=== PATIENT | female | born 1960 | race Caucasian/White ===

== ENCOUNTER 2019-01-31 20:22 | Inpatient (IN) | payer OTHER, BC ==
[~2019-01-31] VITALS: Ht 152.4 cm; Wt 73.0 kg
--- NOTE | ~2019-01-31 | EMS ---
[address] [address] EMS Patient Care Report Name: MARIA GUADALUPE HERNADEZ Room #: 237-P ADM IN M.R.#: [id number] Admission: 01/31/19 Attend Phys: Nav Thomas Discharge: Date of : 62 Report #: [id number] THIS REPORT FOR: //name// Report Transmitted: 02/01/2019 01:24 EMS Care Summary [facility] MED-ACT Incident [id number] @ 01/31/2019 19:53 Incident Location [address] [place] [address] Patient MARIA GUADALUPE A MARICARMEN Female, 58 Years 1960 Patient Address [address] [place] [address] Patient History Chronic Obstructive Pulmonary Disease (COPD),Smoking,Emphysema, Patient Allergies No known allergies, Chief Complaint Respiratory Distress/Exacerbation of COPD Disposition Transported No Lights/[place] Dispatch Reason Breathing Problem Transported To [facility] Narrative [id number] was dispatched to the above address for a C1 difficulty breathing involving a 58 y/o female. EMS/LFD personnel arrived through the residence front door and met by the patient's . The patient was found sitting in her walker in the living room awake and alert but in obvious distress. She presented with an extremely sluggish demeanor, she was sitting in the tripod position, and she was only able to speak in 2-[address] [address] EMS Patient Care Report Name: MARIA GUDAALUPE HERNADEZ Room #: 237-P [facility] IN [facility]#: [id number] Admission: 01/31/19 Attend Phys: Nav Thomas Discharge: Date of : 62 Report #: [id number] The patient's reported that he returned home about 45 minutes prior to EMS arrival and found his sitting in the living room in her current state. He also reported that his was just recently released from another hospital for exacerbation of her COPD and emphysema and has been seen multiple times for breathing difficulties in the past couple years. The patient was initially able to respond appropriately to questions with head nods/shakes and could answer in 2-3 word phrases. Her also reported that she had received a nebulizer treatment about an hour ago with little to no effect. The patient's lung sounds were assessed and found her lung sounds to be extremely diminished, tight, and wheezy. The patient's basic vitals were assessed and the patient was given a duo-nebulizer treatment. The patient was quickly moved from her walker to the ambulance cot, secured, and moved to the ambulance for further evaluation, care, and transport. During transport, the patient's basic vitals were monitored, respiratory effort was closely monitored, she continued her breathing and oxygen treatment, and she was given comfort care. Upon arrival to [facility], the patient had become obtunded, was only able to follow simple commands, and did respond verbally to questions or statements. The patient was given a second duo-nebulizer treatment and the patient was transferred into the ED. Patient care was transferred to hospital staff in room 9. Initial Vitals @20:14P: 112,R: 45,BP: 121/82,Pain: 0/10,GCS: 12,SpO2: 91,Revised Trauma: 10,OR Suspected: false @19:59P: 112,R: 50,BP: 88/73,Pain: 0/10,GCS: 15,SpO2: 79,Revised Trauma: 10,OR Suspected: false Assessments @20:00MENTAL:Other,Person Oriented,Event Oriented,SKIN:Mottled,Cold,Pale,HEENT:Head/Face: No Abnormalities,Eyes: No Abnormalities,Neck/Airway: No Abnormalities,LUNG SOUNDS:General: No Abnormalities,ABDOMEN:General: No Abnormalities,PELVIS//GI:EXTREMITIES:PULSE:NEURO: Impression Chronic Obstructive Pulmonary Disease (COPD) Procedures @20:00ALS AssessmentResponse: UnchangedSucceeded@20:05Albuterol - 2.5 Milligrams (mg) - NebulizedResponse: Unchanged@20:05Ipratropium - 0.5 Milligrams (mg) - NebulizedResponse: Unchanged@20:02Oxygen FlowRate: 4 Device: Nasal Cannula (NC) Response: UnchangedSucceeded@20:17Albuterol - 2.5 Milligrams (mg) - NebulizedResponse: Unchanged@20:17Ipratropium - 0.5 Milligrams (mg) - NebulizedResponse: Unchanged [address] [address] EMS Patient Care Report Name: MARIA GUADALUPE HERNADEZ Room #: 237-P [facility] IN .#: [id number] Admission: 01/31/19 Attend Phys: Nav Thomas Discharge: Date of : 62 Report #: [id number] Timeline 19:53,Call Received 19:53,Psap Call 19:53,Dispatched 19:55,En Route 19:57,On Scene 19:59,At Patient 19:59,BP: 88/73 M,PULSE: 112,RR: 50 R,SPO2: 79 Ox,ETCO2: ,BG: ,PAIN: 0,GCS: 15, 20:00,ALS Assessment,Response: UnchangedSucceeded, 20:02,Oxygen FlowRate: 4 Device: Nasal Cannula (NC) Response: UnchangedSucceeded, 20:05,Albuterol - 2.5 Milligrams (mg) - Nebulized,Response: Unchanged 20:05,Ipratropium - 0.5 Milligrams (mg) - Nebulized,Response: Unchanged 20:13,Depart Scene 20:14,BP: 121/82 M,PULSE: 112,RR: 45 R,SPO2: 91 Ox,ETCO2: ,BG: ,PAIN: 0,GCS: 12, 20:17,Albuterol - 2.5 Milligrams (mg) - Nebulized,Response: Unchanged 20:17,Ipratropium - 0.5 Milligrams (mg) - Nebulized,Response: Unchanged 20:19,At Destination 20:40,Call Closed Disclaimer v1.1 Copyright 2019 [employer] This EMS Care Summary contains data elements from the applicable legal record (which may be displayed differently). It is designed to provide pertinent information for the following purposes: continuity of care, clinical quality, and state data reporting. The complete legal record is available to ED staff and administrators of the receiving hospital in [employer]'s Patient Tracker. All data is provided "as is."
[~2019-01-31 20:22] MED LIST: ALBUTEROL INH IH; CALCIUM 600 +1 EAC1 PO; CYMBALTA60 MG PO; FISH OIL 1,0001 EAC5 PO; INDERAL LA60 MG PO; LEVOTHYROXINE0.2 M1 PO; MULTIVITAMINS PO; PREVACID 30MG C30 M1 PO; ROXICODONE30 M1 PO; SANCTURA; TUSSIN COU10 MG/5 ML PO; VESICARE10 M1 PO; XANAX XR2 MG PO
[2019-01-31 20:53] LABS: HCO3 20.9 mmol/L (22.0-26.0); PCO2 62.4 mmHg (35.0-45.0); PO2 307.9 mmHg (80.0-100.0); pH 7.143 (7.360-7.450); sO2 99.5 % (92.0-98.0)
[2019-01-31 21:08] LABS: ABSOLUTE NEUTROPHILS 5.8 thou/uL (1.4-8.2); BASOPHILS 0.5 % (0.0-2.0); EOSINOPHILS 2.6 % (0.0-3.0); HEMATOCRIT 41.3 % (37.0-47.0); HEMOGLOBIN 13.6 gm/dL (12.0-15.0); LYMPHOCYTES 33.4 % (24.0-44.0); MCH 32.2 pg (26.0-34.0); MCHC 32.9 g/dL (28.0-37.0); MCV 97.8 fL (80.0-100.0); MONOCYTES 7.2 % (1.0-8.0); PLATELET COUNT 353 thou/uL (150-400); POLYS 56.3 % (36.0-66.0); RBC 4.22 mil/uL (4.20-5.00); RDW 13.5 % (10.5-14.5); WBC 10.3 thou/uL (4.0-11.0)
[2019-01-31 21:10] LABS: POC CA IONIZED 4.6 mg/dL (4.5-5.3); POC CREATININE 1.3 mg/dL (0.6-1.3); POC POTASSIUM 5.9 mmol/L (3.5-5.1)
--- NOTE | 2019-01-31 21:11 | NUR ---
SPOUSE UPDATED ON CARE THUS FAR AND TREATMENT PLAN
[2019-01-31] MEDS ORDERED: OXYCONTIN PO (21:22)
[2019-01-31 21:25] LABS: ALBUMIN 3.2 g/dL (3.4-5.0); ANION GAP 13 mmol/L (7-16); BUN 10 mg/dL (7-18); CALCIUM 9.6 mg/dL (8.5-10.1); CHLORIDE 91 mmol/L (98-107); CO2 25 mmol/L (21-32); CREATININE 1.5 mg/dL (0.6-1.0); GLUCOSE 261 mg/dL (74-106); LIPASE 167 U/L (73-393); SGOT 64 U/L (15-37); SGPT 26 U/L (30-65); SODIUM 129 mmol/L (136-145); TOTAL BILIRUBIN 0.4 mg/dL (<0.1-1.0); TOTAL PROTEIN 7.1 g/dL (6.4-8.2); TROPONIN-I <0.06 ng/mL (<0.06)
[2019-01-31] MEDS ORDERED: PROAIR HFA8.5 GM INH (21:25)
[2019-01-31] MEDS ORDERED: DIPENTUM 250MG250 MG PO (21:25)
[2019-01-31] MEDS ORDERED: IPRAT-ALBUT 0.5-3 ML (21:25)
[2019-01-31] MEDS ORDERED: ZANTAC 150MG T150 M1 PO (21:26)
[2019-01-31 21:27] LABS: POTASSIUM 6.1 mmol/L (3.5-5.1)
[2019-01-31] MEDS ORDERED: TRAMADOL 50 MG50 MG PO (21:27)
[2019-01-31] MEDS ORDERED: TRAZODONE HCL100 MG PO (21:27)
[2019-01-31] MEDS ORDERED: BUPROPION XL300 MG PO (21:32)
[2019-01-31] MEDS ORDERED: OLANZAPINE ODT5 MG PO (21:33)
[2019-01-31] MEDS ORDERED: ASA81BEC PO (22:22)
[2019-01-31] MEDS ORDERED: MELATONIN5 MG PO (22:23)
[2019-01-31 22:34] LABS: BE(vivo) 1.9 mmol/L (-2 to +3); HCO3 32.1 mmol/L (22.0-26.0); PCO2 79.6 mmHg (35.0-45.0); PO2 151.3 mmHg (80.0-100.0); pH 7.224 (7.360-7.450); sO2 98.5 % (92.0-98.0)
[2019-01-31 23:20] VITALS: BP 130/76
[2019-01-31 23:53] VITALS: BP 99/65
[2019-02-01] VITALS (60 sets, daily range): BP systolic 69–138; BP diastolic 46–95
[2019-02-01 00:24] LABS: URINE BILIRUBIN NEGATIVE (Negative); URINE BLOOD NEGATIVE (Negative); URINE CLARITY CLEAR; URINE COLOR YELLOW; URINE GLUCOSE-RANDOM* NEGATIVE (Negative); URINE KETONES NEGATIVE (Negative); URINE LEUKOCYTES NEGATIVE (Negative); URINE NITRITE NEGATIVE (Negative); URINE PROTEIN (DIPSTICK) NEGATIVE (Negative); URINE SPECIFIC GRAVITY <= 1.005 (1.005-1.035); URINE UROBILINOGEN 0.2 E.U./dl (0.2-1.0)
--- NOTE | 2019-02-01 02:02 | NUR ---
PT ARRIVED TO ICU AT 2337 ACCOMPANIED BY ED RN AND RT. PT INTUBATED AND SEDATED ON PROPOFOL PER VENT MANAGMENT. PT SR ON THE MONITOR. BP SOFT ON ADMISSION. PT HAD EPISODE OF HYPOTENSION IN ICU. HYPOTENSION IMPROVED WITH TITRATION OF SEDATION. PT RESTRAINED DUE TO IMPULSIVENESS AND PREVENTION OF REMOVAL OF MEDICAL DEVICES. DR DELATORRE CONTACTED AND UPDATED ON PT STATUS. UPDATED AT BEDSIDE ON PT STATUS, QUESTIONS ANSWERED. WILL CONTINUE TO MONITOR PT.
[2019-02-01 05:36] LABS: HCO3 30.7 mmol/L (22.0-26.0); PCO2 54.7 mmHg (35.0-45.0); pH 7.367 (7.360-7.450); sO2 94.6 % (92.0-98.0)
[2019-02-01 06:49] LABS: CREATININE 1.3 mg/dL (0.6-1.0); POTASSIUM 3.4 mmol/L (3.5-5.1)
[2019-02-01 08:26] LABS: HEMATOCRIT 43.9 % (37.0-47.0); HEMOGLOBIN 14.7 gm/dL (12.0-15.0); MCHC 33.5 g/dL (28.0-37.0); MCV 95.4 fL (80.0-100.0); RBC 4.6 mil/uL (4.20-5.00); RDW 13.3 % (10.5-14.5); WBC 11.6 thou/uL (4.0-11.0)
--- NOTE | 2019-02-01 10:20 | EKG ---
[place] [address] [facility] [place] [address] ELECTROCARDIOGRAM REPORT Name: MARIA GUADALUPE HERNADEZ Room #: 237-P ADM IN M.R.#: [id number] Admission: 01/31/19 Attend Phys: Nav Thomas Discharge: Date of : 62 Report #: [id number] THIS REPORT FOR: //name// [facility] ED Test Date: 2019-01-31 Test Time: 20:30:03 Pat Name: MARIA GUADALUPE HERNADEZ Department: Room: 237 Gender: F Master [employer]: ANUJ : 1960 Requested By: Ghanshyam Garrett Order Number: [id number] MD: Cj Jones Measurements Intervals [place] Rate: 124 P: 0 DC: 61 QRS: -24 QRSD: 132 T: 82 QT: 370 QTc: 532 Interpretive Statements Sinus tachycardia Left bundle branch block Compared to ECG 10/28/2010 07:08:26 Left bundle-branch block now present Sinus rhythm no longer present Electronically Signed On 02-01-2019 10:19:54 CDT by Cj Jones [email or web address] <ELECTRONICALLY SIGNED> By: Cj Jones MD 02/01/19 1019 29 2030 Cj Jones MD /MILVIA
--- NOTE | 2019-02-01 15:57 | 2DMMODE ---
[facility] [address] [place] [address] 2 D/M-MODE ECHOCARDIOGRAM Name: MARIA GUADALUPE HERNADEZ Room #: 237-P [facility] IN [facility]#: [id number] Admission: 01/31/19 Attend Phys: Nav Jain Discharge: Date of : 62 Report #: [id number] THIS REPORT FOR: //name// APPROVED REPORT Study performed: 02/01/2019 10:26:45 EXAM: Comprehensive 2D, Doppler, and color-flow Echocardiogram Patient Location: In-Patient Room #: 237 Status: routine BSA: 1.79 HR: 81 bpm Rhythm: NSR Other Information Study Quality: Poor Echo Enhancing Agent Indication: Endocardial border delineation Agent(s) / Amount(s) Used: Optison 2 cc 2D Dimensions RVDd: 30.30 mm IVSd: 11.47 (7-11mm) LVOT Diam: 19.82 (18-24mm) LVDd: 29.64 mm PWd: 12.15 (7-11mm) Ascending Ao: 40.57 (22-36mm) LVDs: 21.35 (25-40mm) Left Atrium: 26.51 (27-40mm) Aortic Root: 35.00 mm LV Single Plane 4CH: 50.38 % LV Single Plane 2CH: 57.32 % Volumes Left Atrial Volume (Systole) Single Plane 4CH: 17.68 mL Single Plane 2CH: 16.64 mL Aortic Valve AoV Peak Zachary.: 0.88 m/s AO Peak Gr.: 3.07 mmHg AO Mean Gr.: 1.16 mmHg AO V2 Mean: 0.48 m/s AO V2 VTI: 15.41 cm [facility] [address] [address] 2 D/M-MODE ECHOCARDIOGRAM Name: MARIA GUADALUPE HERNADEZ Room #: 237-P [facility] IN [facility]#: [id number] Admission: 01/31/19 Attend Phys: Nav Jain Discharge: Date of : 62 Report #: [id number] Pulmonary Vein P Vein S: 0.32 m/s P Vein A: 0.26 m/s P Vein D: 0.47 m/s P Vein A Dur.: 161.5 msec P Vein S/D Ratio: 0.68 Left Ventricle The left ventricle is normal size. Regional wall motion abnormalities are noted. There is hypokinesis in the inferior and apical dykes. Mild concentric left ventricular hypertrophy. Left ventricular systolic function is moderately decreased. LVEF is 35-40%. Grade I - abnormal relaxation pattern. Right Ventricle The right ventricle is normal size. Right ventricular systolic function is grossly normal. Atria The left atrium size is normal. The right atrium size is normal. Aortic Valve The aortic valve is not well visualized. No aortic regurgitation is present. There is no aortic valvular stenosis. Mitral Valve The mitral valve is normal in structure. Moderate to severe mitral regurgitation No evidence of mitral valve stenosis. Tricuspid Valve The tricuspid valve is normal in structure. There is no tricuspid valve regurgitation noted. Pulmonic Valve Pulmonic valve is not well visualized. Great Vessels Aortic root is borderline dilated. The ascending aorta is borderline dilated. IVC is normal in size and collapses >50% with inspiration. Pericardium There is no pericardial effusion. <Conclusion> The left ventricle is normal size. Mild concentric left ventricular hypertrophy. [facility] [place] [address] 2 D/M-MODE ECHOCARDIOGRAM Name: MARIA GUADALUPE HERNADEZ Room #: 237-P [facility] IN .R.#: [id number] Admission: 01/31/19 Attend Phys: Nav Jain Discharge: Date of : 62 Report #: [id number] Left ventricular systolic function is moderately decreased. LVEF is 35-40%. Regional wall motion abnormalities are noted. The right ventricle is normal size. The left atrium size is normal. The aortic valve is not well visualized. Moderate to severe mitral regurgitation There is no tricuspid valve regurgitation noted. <ELECTRONICALLY SIGNED> By: Cj Jones MD 02/01/19 1557 155 56 Cj Jones MD /INF
[2019-02-01 16:09] LABS: CALCIUM 8.6 mg/dL (8.5-10.1); CREATININE 1.3 mg/dL (0.6-1.0); MAGNESIUM 1.8 mg/dL (1.8-2.4); POTASSIUM 3.1 mmol/L (3.5-5.1)
--- NOTE | 2019-02-01 19:05 | NUR ---
PATIENT ON MODERATE SEDATION, SEDATION VACATION COMPLETED FOR 10 MINUTES DURING BEGINNING OF SHIFT, PATIENT VERY ANXIOUS AND TRYING TO PULL OUT TUBE, DR. DELATORRE AWARE, NO WEANING TRIAL COMPLEED. PATIENT ON 40%FIO2. CENTRAL LINE PLACED TODAY. NO SIGNS OF ACUTE DISTRESS NOTED AT THIS TIME. WILL CONTINUE TO MONITOR.
--- NOTE | 2019-02-01 19:59 | NUR ---
VAT CONSULTED FOR A CL ON THIS PT. ON PRESSORS IN THE ICU, RESP ARREST. NEPHROLOGY CONSULTED. A 5FRTLPOWERLINE PLACED RT IJ WITH US GUIDE. TIP AT THE DSVC AND RELEASED FOR USE. PLEASE SEE INSERTION NOTE FOR DETAILS
[2019-02-02] VITALS (36 sets, daily range): BP systolic 112–146; BP diastolic 68–120
[2019-02-02 00:50] LABS: MAGNESIUM 1.6 mg/dL (1.8-2.4)
[2019-02-02 00:52] LABS: POTASSIUM 4.1 mmol/L (3.5-5.1)
[2019-02-02 01:10] LABS: GLYCOHEMOGLOBIN (HGB A1C) 4.9 % (4.8-5.6)
[2019-02-02 05:42] LABS: BE(vivo) 3.5 mmol/L (-2 to +3); HCO3 28.8 mmol/L (22.0-26.0); PCO2 46.4 mmHg (35.0-45.0); PO2 88.2 mmHg (80.0-100.0); pH 7.411 (7.360-7.450); sO2 96.7 % (92.0-98.0)
--- NOTE | 2019-02-02 06:00 | NUR ---
REMAINS INTUBATED AND SEDATED WITH PROPOFOL GTT. BATHED. CONT TO BE IMPULSIVE AND RESTLESS AT TIMES. ATTEMPTS TO PULL AT ET TUBE. VSS WILL CONT TO MONITOR.
[2019-02-02 06:59] LABS: HEMATOCRIT 36.4 % (37.0-47.0); MCH 31.4 pg (26.0-34.0); MCHC 32.8 g/dL (28.0-37.0); MCV 95.7 fL (80.0-100.0); RBC 3.8 mil/uL (4.20-5.00); RDW 13.6 % (10.5-14.5); WBC 13.2 thou/uL (4.0-11.0)
[2019-02-02 07:04] LABS: CALCIUM 7.7 mg/dL (8.5-10.1); CREATININE 1.1 mg/dL (0.6-1.0); POTASSIUM 3.5 mmol/L (3.5-5.1)
[2019-02-02 07:21] LABS: HEMOGLOBIN 11.9 gm/dL (12.0-15.0)
--- NOTE | 2019-02-02 07:27 | HC ---
[facility] [address] CONSULTATION Name: MARIA GUADALUPE HERNADEZ Estela Room #: 237-P [facility] IN ..#: [id number] Admission: 01/31/19 Attend Phys: Nav Thomas Discharge: Date of : 62 Report #: [id number] THIS REPORT FOR: //name// CC: Amando Thomas DATE OF SERVICE: 02/01/2019 CARDIOLOGY CONSULTATION INDICATION: Respiratory failure. HISTORY OF PRESENT ILLNESS: This is a 58-year-old female with a history of COPD, oxygen dependent on 3 liters via nasal cannula, GERD, Graves' disease and depression. The patient is presently intubated and the history is obtained from her medical records and her . According to her , she had not been feeling well for the past few days and was noted to be dyspneic. When he came home, she was minimally arousable and complained of dyspnea. 911 was called. The patient was intubated. There is no history of chest pains or fevers. The patient continued to smoke. There is no prior history of TN or heart failure. We are asked to evaluate the patient for an elevated BNP level. PAST MEDICAL HISTORY: COPD, on chronic oxygen at 3 liters, history of GERD, history of Graves' disease and depression. Positive tobacco use. ALLERGIES: None. MEDICATIONS: Include Synthroid, propranolol 60 mg b.i.d., albuterol inhaler, ranitidine, bupropion, aspirin. SOCIAL HISTORY: Positive tobacco use. FAMILY HISTORY: Unobtainable. REVIEW OF SYSTEMS: Unobtainable. PHYSICAL EXAMINATION: VITAL SIGNS: Blood pressure is 103/70, heart rate is 78 beats per minute. GENERAL APPEARANCE: She is a well-developed, well-nourished female, intubated and sedated. HEENT: Normocephalic/atraumatic. NECK: Supple. LUNGS: Diminished breath sounds at the bases. CARDIAC: Regular rate and rhythm, S1, S2 positive. ABDOMEN: Soft, nontender. EXTREMITIES: No cyanosis. Trace edema. [facility] [address] [place] [address] CONSULTATION Name: MARIA GUADALUPE HERNADEZ Room #: 237-P [facility] IN ..#: [id number] Admission: 01/31/19 Attend Phys: Nav Thomas Discharge: Date of : 62 Report #: [id number] LABORATORY VALUES: Troponin is negative. Initial lactate was 7.15, down to 1.3. BNP is 4220. ECG on admission was sinus tachycardia at 124 beats per minute with a left bundle-branch block. ASSESSMENT AND PLAN: 1. Respiratory failure, most likely attributed to a chronic obstructive pulmonary disease exacerbation. Her initial blood gas was consistent with respiratory acidosis, improved with intubation. Continue treatment with antibiotics and inhaler, as per Pulmonary. 2. Elevated BNP level, she has no prior history of myocardial infarction or heart failure. She does not have a history of hypertension as well. Chest x-ray did not show any evidence for pulmonary edema. The elevated BNP may be attributed to chronic pulmonary hypertension from her lung disease. We will proceed with an echo to evaluate her LV systolic function. 3. Hypothyroidism, continue with Synthroid. 4. Gastroesophageal reflux disease, continue with GI prophylaxis. <ELECTRONICALLY SIGNED> By: Cj Jones MD 02/02/19 0727 0849 0005 Cj Jones MD /nt
--- NOTE | 2019-02-02 11:39 | EKG ---
[address] [address] ELECTROCARDIOGRAM REPORT Name: MARIA GUADALUPE HERNADEZ Room #: 237-P ADM IN M.R.#: [id number] Admission: 01/31/19 Attend Phys: Nav Thomas Discharge: Date of : 62 Report #: [id number] THIS REPORT FOR: //name// Test Date: 2019-02-01 Test Time: 11:36:27 Pat Name: MARIA GUADALUPE HERNADEZ Department: Room: 237 P Gender: F Hooker Operator: LYUBOV : 1960 Requested By: Eric Rangel Order Number: [id number] MD: Cj Jones Measurements Intervals [place] Rate: 85 P: 80 [place]: 154 QRS: 47 QRSD: 95 T: 237 QT: 460 QTc: 547 Interpretive Statements Sinus rhythm Consider right atrial enlargement Anterior infarct, age indeterminate Prolonged QT interval Compared to ECG 01/31/2019 20:30:03 Myocardial infarct finding now present Prolonged QT interval now present Sinus tachycardia no longer present Left bundle-branch block no longer present Electronically Signed On 02-02-2019 11:39:14 CDT by Cj Joens [email or web address] <ELECTRONICALLY SIGNED> By: Cj Jones MD 02/02/19 1139 1136 1136 Cj Jones MD /EPI
--- NOTE | 2019-02-02 11:45 | EKG ---
[address] [address] ELECTROCARDIOGRAM REPORT Name: MARIA GUADALUPE HERNADEZ Room #: 237- ADM IN M.R.#: [id number] Admission: 01/31/19 Attend Phys: Nav Thomas Discharge: Date of : 62 Report #: [id number] THIS REPORT FOR: //name// [facility] Test Date: 2019-02-02 Test Time: 07:26:30 Pat Name: MARIA GUADALUPE HERNADEZ Department: Room: 237 P Gender: F Renal Social Worker: karey : 1960 Requested By: Cj Jones Order Number: [id number] MD: Cj Jones Measurements Intervals [place] Rate: 101 P: 85 [place]: 146 QRS: 62 QRSD: 93 T: 197 QT: 429 QTc: 557 Interpretive Statements Sinus tachycardia Anterior infarct, age indeterminate Prolonged QT interval Compared to ECG 01/31/2019 20:30:03 Prolonged QT interval now present Left bundle-branch block no longer present Electronically Signed On 02-02-2019 11:45:04 CDT by Cj Jones [email or web address] <ELECTRONICALLY SIGNED> By: Cj Jones MD 02/02/19 1145 D: 10/725 5 Cj Jones MD /MILVIA
--- NOTE | 2019-02-02 19:27 | NUR ---
PATIENT ON MODERATE SEDATION, VERY ANXIOUS WHEN SEDATION PAUSED, TRYING TO PULL TUBE OUT. ON 40%FIO2. NO PLANS TO WEAN TODAY, WILL EVALUATE TOMORROW PER DR. KO. GRUBER OVER 2000 ML OUT POST LASIX ADMINISTRATION. UPDATED, NO SIGNS OF ACUTE DISTRESS NOTED AT THIS TIME. WILL CONTINUE TO MONITOR.
[2019-02-03] VITALS (26 sets, daily range): BP systolic 112–149; BP diastolic 76–102
--- NOTE | 2019-02-03 04:55 | NUR ---
VENT ALARMS ON SUDDENLY PT HAD SELF EXTUBATED HERSELF. RT CALLED STAT. O2 SAT DECREASE TO 80 % BAGGING PT. CODE CALLED.
--- NOTE | 2019-02-03 05:05 | NUR ---
ER DR AGUDELO HERE FENTANYL 100 MCG AND SUCCS 150 MG GIVEN STAT PT INTUBATED PLACED ON 40 % FIO2. DR DELATORRE NOTIFIED
--- NOTE | 2019-02-03 06:00 | NUR ---
REMAINS INTUBATED NAD SEDATED WITH PROPOFOL 80 MCG. AROUSES EASILY LUNGS SCATTERED WHEEZING. 1000 CC UO AND 200 CC OG DRAIAGE THIS SHIFT. WILL CONT TO MONITOR CLOSELY
--- NOTE | 2019-02-03 08:25 | EKG ---
[address] [place] [address] ELECTROCARDIOGRAM REPORT Name: MARIA GUADALUPE HERNADEZ Room #: 237- ADM IN M.R.#: [id number] Admission: 01/31/19 Attend Phys: Nav Thomas Discharge: Date of : 62 Report #: [id number] THIS REPORT FOR: //name// [facility] Test Date: 2019-02-03 Test Time: 08:21:34 Pat Name: MARIA GUADALUPE HERNADEZ Department: Room: 237 P Gender: F Cardio Tech: Pablito NARANJO : 1960 Requested By: Savannah Parisi Order Number: [id number] MD: Ricky Sharp Measurements Intervals [place] Rate: 109 P: 84 [place]: 118 QRS: 66 QRSD: 88 T: 182 QT: 427 QTc: 576 Interpretive Statements Sinus tachycardia Probable anteroseptal infarct, recent Prolonged QT interval Compared to ECG 02/02/2019 07:26:30 No significant changes Electronically Signed On 02-03-2019 8:25:02 CDT by Ricky Sharp [email or web address] <ELECTRONICALLY SIGNED> By: Ricky Sharp MD, [facility] 02/03/19 0825 0 0 Ricky Sharp MD, [facility] /EPI
[2019-02-03 08:34] LABS: HEMATOCRIT 37.2 % (37.0-47.0); HEMOGLOBIN 12.1 gm/dL (12.0-15.0); MCH 31.2 pg (26.0-34.0); MCHC 32.4 g/dL (28.0-37.0); MCV 96.3 fL (80.0-100.0); RBC 3.86 mil/uL (4.20-5.00); RDW 13.7 % (10.5-14.5); WBC 12.7 thou/uL (4.0-11.0)
[2019-02-03 08:46] LABS: CALCIUM 7.7 mg/dL (8.5-10.1); POTASSIUM 3.6 mmol/L (3.5-5.1)
--- NOTE | 2019-02-03 15:53 | NUR ---
ASSUMED CARE @ 0700 02/03/19, I WAS INFORMED BY THE MEETING FACILITATOR THAT PT'S RACHEL HERNADEZ CALLED ADMINISTRATION TO VOICE HIS CONCERNS ABOUT NOT BEING UPDATED BY DR'S ABOUT 'S STATUS AND HE COMPLAINED THAT ANYTIME HE CALLED THE UNIT, THE PHONE IS HUNG UP. I CALLED RACHEL HERNADEZ AND EXPLAINED TO HIM THAT SINCE MY SHIFT START, PT HAS HAD NO EVENTS AND THERE WAS NO REASON TO CALL HIM AND THAT WE CALL AN UPDATE WHEN PT'S HAVE EVENTFUL EPISODES , I ALSO EXPLAINED THAT NO ONE ON THE UNIT WOULD INTENTIONALLY HANG ON HIM AND THAT, THAT CAN BE ATTRIBUTED TO PHONE CONNECTION. WHEN EXPLAINED, PT'S SEEMS CALM. I DID INFORM PT'S THAT PT DID SELF-EXTUBATE HERSELF LAST NIGHT AND WE DID HAVE TO RE-INTUBATE HER.
--- NOTE | 2019-02-03 16:51 | NUR ---
patient admitted to ICU resp. failure. She is intubated and sedated. Sp with spouse. 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 She does not work she is disabled. She use oxygen at home usu on 2-3 liters. She uses no assistive device. She is primary caregiver for her mother. Her spouse reports her father approx 2 years ago. They moved into her parents home to care for mother. She is essentially bedbound. Sp reports caregiver Joshua 2x a week tues, sat to assist. Discussed respite care and spouse reports she would never agree. She has been at [facility] in past and she was mean at facility. He reports patient would never want her in nursing facility. Discussed increase in private dty and reviewed option. Spouse reports he called Hospice today the [facility] for patients father. He reports they are in contact with patients mothers dr to try to admit to service. Discussed hospice does not have 24/7 care at home. Spouse is aware of this. Left ltc resource in patients room if want to pursue respite for mother. Patient and spouse have a son who has 5 children [address] over [address] refrigerated national truck driver. Patients spouse also over the road refrigerated national truck driver. [facility] number given to spouse for f/u.
[2019-02-04] VITALS (23 sets, daily range): BP systolic 108–158; BP diastolic 81–115
[2019-02-04 05:44] LABS: HEMATOCRIT 37.6 % (37.0-47.0); HEMOGLOBIN 12.3 gm/dL (12.0-15.0); MCH 31.5 pg (26.0-34.0); MCHC 32.7 g/dL (28.0-37.0); MCV 96.3 fL (80.0-100.0); RBC 3.91 mil/uL (4.20-5.00); RDW 13.6 % (10.5-14.5); WBC 12.6 thou/uL (4.0-11.0)
[2019-02-04 06:00] LABS: CALCIUM 8.1 mg/dL (8.5-10.1); CREATININE 0.9 mg/dL (0.6-1.0); POTASSIUM 3.4 mmol/L (3.5-5.1)
--- NOTE | 2019-02-04 06:00 | NUR ---
REMAINS INTUBATED AND SEDATED WITH PROPOFOL 80 MCG. 200 CC NGT DRG AND 3000 CC UO THIS SHIFT. REMAINS IN SINUS TACH. BATHED. WILL CONT TO MONITOR.
--- NOTE | 2019-02-04 10:45 | NUR ---
Nutrition: If unable to extubate today, REC start Vital HP at 20 mL/hr. RD will follow for goal rate. Currently with high propofol demands.
--- NOTE | 2019-02-04 19:48 | NUR ---
ASSESSMENTS AND INTERVENTIONS DOCCUMENTED. PATIENT REMAINS SEDATED AND ON PROPOFOL GTT. WHEN PATIENT ON SEDATION VACATION, PATIENT ABLE TO FOLLOW SOME COMMANDS. FAMILY AND PATIENT UPDATED ABOUT PLAN OF CARE. PATIENT HAVING LOW BLOOD SUGAR. DR. FORD AND FLUIDS CHANGED AND LOW SODIUM REPORTED. GLUCOSE REDRWAN AND LABS WNL. REPORT GIVEN TO NUT SORTER OPERATOR NURSE.
[2019-02-05] VITALS (24 sets, daily range): BP systolic 86–144; BP diastolic 60–103
[2019-02-05 04:16] LABS: CALCIUM 8.1 mg/dL (8.5-10.1); CREATININE 1.1 mg/dL (0.6-1.0); POTASSIUM 3.1 mmol/L (3.5-5.1)
[2019-02-05 04:58] LABS: HEMATOCRIT 39.3 % (37.0-47.0); MCH 32.2 pg (26.0-34.0); MCHC 33.1 g/dL (28.0-37.0); MCV 97.3 fL (80.0-100.0); RBC 4.04 mil/uL (4.20-5.00); RDW 13.8 % (10.5-14.5); WBC 10.8 thou/uL (4.0-11.0)
--- NOTE | 2019-02-05 07:20 | NUR ---
PATIENT REMAINS INTUBATED AND SEDATED WITH PROPOFOL DRIP. NO ACUTE EVENTS OCCURRED DURING THIS SHIFT AND HOURLY ROUNDING COMPLETED. ASSESSMENTS COMPLETED PER ICU POLICY.
[2019-02-05 13:53] LABS: BE(vivo) 6.7 mmol/L (-2 to +3); HCO3 32.3 mmol/L (22.0-26.0); PCO2 49.6 mmHg (35.0-45.0); PO2 84.9 mmHg (80.0-100.0); pH 7.432 (7.360-7.450); sO2 96.5 % (92.0-98.0)
--- NOTE | 2019-02-05 18:38 | NUR ---
ASSESSMENTS AND INTERVENTIONS DOCCUMENTED. PATIENT HAVING COFFEE GROUND GASTRIC CONTENTS. TESTED POSITIVE FOR OCULT BLOOD. PATIENT NPO. TROPONIN DRAWN AND INCREASED HEART RATE. RESULTS CALLED TO DR. RAYO. FAMILY UPDATED ON PATIENT PLAN OF CARE. THE PLAN OF CARE IS TO KEEP PATIENT NPO, MONITOR THE RESPIRATORY STATUS.
[2019-02-06] VITALS (36 sets, daily range): BP systolic 92–132; BP diastolic 56–96
[2019-02-06 01:17] LABS: ALBUMIN 2.7 g/dL (3.4-5.0); CALCIUM 8.6 mg/dL (8.5-10.1); CREATININE 1.3 mg/dL (0.6-1.0); POTASSIUM 3.3 mmol/L (3.5-5.1); TOTAL BILIRUBIN 0.5 mg/dL (<0.1-1.0); TOTAL PROTEIN 6.3 g/dL (6.4-8.2)
[2019-02-06 04:26] LABS: PCO2 47.2 mmHg (35.0-45.0); PO2 94.7 mmHg (80.0-100.0); pH 7.463 (7.360-7.450); sO2 97.5 % (92.0-98.0)
[2019-02-06 05:33] LABS: ABSOLUTE NEUTROPHILS 8.2 thou/uL (1.4-8.2); BASOPHILS 0.2 % (0.0-2.0); HEMATOCRIT 40.6 % (37.0-47.0); LYMPHOCYTES 11.9 % (24.0-44.0); MCH 31.4 pg (26.0-34.0); MCV 98.1 fL (80.0-100.0); MONOCYTES 8.9 % (1.0-8.0); PLATELET COUNT 295 thou/uL (150-400); RBC 4.13 mil/uL (4.20-5.00); RDW 14.1 % (10.5-14.5); WBC 10.4 thou/uL (4.0-11.0)
--- NOTE | 2019-02-06 09:11 | NUR ---
9345- UPDATED, SPOKE W RE:BRONCH.--VW 0966-BRONCH DONE. LOPRESSOR 5MG, FENTANYL FOR BRONCH. CULTURES SENT.--VW
--- NOTE | 2019-02-06 10:16 | NUR ---
Nutrition: Pt NPO x 5 days. Inability to start tube feeds with coffee ground drainage from OGT. REC start Clinimix PPN at 80 mL/hr with current propofol.
--- NOTE | 2019-02-06 11:34 | NUR ---
TURNED ONTO RT SIDE EARLIER-DID NOT ALLISON.DROPPED O2 SATS DOWN TO ~.72%-FIO2 UP TO .60%,SLOW RECOVERY UNTIL PT TURNED ONTO BACK. FIO2 BACK DOWN TO .40% AFTER SATS MAINTAINED WELL. R.T. AWARE. SPOKE W Javier BARBA NP, RE:AJ W COFFEE GROUND MATERIAL. PT ALLISON BRONCH WELL.--VW
--- NOTE | 2019-02-06 15:42 | NUR ---
1400-WILL HOLD OFF ON STARTING PPN UNTIL p EGD. IF EGD OK, WILL START TF PER .--VW
--- NOTE | 2019-02-06 16:45 | NUR ---
0091- IN,EGD STARTING.--VW 1640-EGD COMPLETE. FENTANYL 25MCG GIVEN DURING PROCDEURE FOR COMFORT.PT ALLISON WELL.--VW
--- NOTE | 2019-02-06 19:29 | NUR ---
HOPE TO WEAN TOMORROW.MAKING SLOW PROGRESS TOWARD EXTUBATION GOALS.CARE TURNED OVER TO ONCOMING RN.--VW
[2019-02-07] VITALS (23 sets, daily range): BP systolic 82–117; BP diastolic 58–87
[2019-02-07 05:12] LABS: HEMATOCRIT 38.7 % (37.0-47.0); HEMOGLOBIN 12.4 gm/dL (12.0-15.0); MCH 31.3 pg (26.0-34.0); MCHC 32.2 g/dL (28.0-37.0); MCV 97.2 fL (80.0-100.0); RBC 3.98 mil/uL (4.20-5.00); WBC 13.6 thou/uL (4.0-11.0)
[2019-02-07 05:18] LABS: CALCIUM 9.4 mg/dL (8.5-10.1); CREATININE 1.4 mg/dL (0.6-1.0); POTASSIUM 3.8 mmol/L (3.5-5.1)
--- NOTE | 2019-02-07 07:27 | NUR ---
RECEIVED REPORT AND ASSUMED PATIENT CARE. PATIENT REMAINS ON THE VENTILATOR WITH PROPOFOL INFUSING. TUBE FEEDING STARTED WITH VITAL HP WITH THE CURRENT GOAL AT 25 ML/HR UNTIL FURTHER ASSESSMENT. VS REMAINED STABLE AND NO ACUTE EVENTS OCCURRED DURING THIS SHIFT.
--- NOTE | 2019-02-07 15:44 | NUR ---
FOLLOWING FOR DC PLANNING. CLINICAL INFO REVIEWED. PT REMAINS ON VENT AND SEDATION. EGD 02/06 SHOWED GASTRITIS. TUBE FEEDINGS STARTED 02/06/19. PT HAS SHOWN AGITATION WHEN SEDATION LIGHTENED. WEANING FORM VENT TOLERATED. PT PREVIOUSLY LIVING AT [facility] WITH SPOUSE AND BELL STAFF TO HER MOTHER.
[2019-02-08] VITALS (23 sets, daily range): BP systolic 88–126; BP diastolic 59–84
[2019-02-08 04:46] LABS: HEMATOCRIT 39.7 % (37.0-47.0); HEMOGLOBIN 12.8 gm/dL (12.0-15.0); MCH 31.2 pg (26.0-34.0); MCHC 32.4 g/dL (28.0-37.0); MCV 96.2 fL (80.0-100.0); RBC 4.12 mil/uL (4.20-5.00); RDW 13.7 % (10.5-14.5); WBC 13.5 thou/uL (4.0-11.0)
[2019-02-08 04:55] LABS: CALCIUM 9.8 mg/dL (8.5-10.1); CREATININE 1.2 mg/dL (0.6-1.0); POTASSIUM 3.4 mmol/L (3.5-5.1)
--- NOTE | 2019-02-08 07:06 | NUR ---
Pt remains on sedation, she opens her eyes with cares, but does not follow any commands, no changes were made to her vent settings. See charting for VSS. Electrolyte replacement per protocol this am, added a magnesium level for PVC's noted through the night. Tube feeding has been tolerated, minimal residuals were returned, placement is been verified with meds given.
--- NOTE | 2019-02-08 14:55 | NUR ---
DR. KAM TALKED TO PATIENT'S SON OVER THE PHONE RE: POC AND WILL TALK WITH DR. STACY SO THAT HE CAN UPDATE SON ON PLANS ON WEANING OFF THE VENT.
--- NOTE | 2019-02-08 18:20 | NUR ---
RECEIVED CALL FROM PATIENT'S SON STATING HE HAD NOT RECEIVED A CALL FROM DR. STACY LIKE DR. KAM HAD TOLD HIM HE WOULD. TEXT SENT TO DR. KAM IN THIS REGARD VIA [employer] TEXT-RECEIVED REPLY THAT SHE WILL TEXT DR. STACY.
[2019-02-09] VITALS (18 sets, daily range): BP systolic 100–151; BP diastolic 59–119
--- NOTE | 2019-02-09 05:22 | NUR ---
Pt's son was visiting earlier in the shift, he is VERY concerned that the family has not been able to speak with any of the physicians. He states he had spoken to the senior director finance and not given a very good report and was asking if his mother could be "woke" up. He was quite tearful and left for a short time, then came back with his dad. They would very much like to speak with the doctors today and get some questions answered.
[2019-02-09 08:00] LABS: HCO3 33.1 mmol/L (22.0-26.0); PO2 80.4 mmHg (80.0-100.0); pH 7.465 (7.360-7.450); sO2 96.3 % (92.0-98.0)
--- NOTE | 2019-02-09 08:30 | NUR ---
0715: PLACED ON CPAP BY RT GANNON, SEDATION TURNED DOWN. PATIENT AWAKE AND FOLLOWING COMMANDS AND NODDING TO Y/N QNS
[2019-02-09 09:16] LABS: ABSOLUTE NEUTROPHILS 10.6 thou/uL (1.4-8.2); BASOPHILS 0.8 % (0.0-2.0); EOSINOPHILS 0.5 % (0.0-3.0); HEMATOCRIT 40.6 % (37.0-47.0); HEMOGLOBIN 13.2 gm/dL (12.0-15.0); LYMPHOCYTES 23.5 % (24.0-44.0); MCH 31.4 pg (26.0-34.0); MCHC 32.6 g/dL (28.0-37.0); MCV 96.4 fL (80.0-100.0); MONOCYTES 8.1 % (1.0-8.0); PLATELET COUNT 356 thou/uL (150-400); POLYS 67.1 % (36.0-66.0); RBC 4.22 mil/uL (4.20-5.00); RDW 13.7 % (10.5-14.5); WBC 15.9 thou/uL (4.0-11.0)
[2019-02-09 09:29] LABS: ALBUMIN 3.1 g/dL (3.4-5.0); CALCIUM 10.2 mg/dL (8.5-10.1); CREATININE 1.5 mg/dL (0.6-1.0); MAGNESIUM 1.9 mg/dL (1.8-2.4); POTASSIUM 3.2 mmol/L (3.5-5.1); TOTAL BILIRUBIN 0.5 mg/dL (<0.1-1.0)
--- NOTE | 2019-02-09 09:44 | NUR ---
0940: PATIENT EXTUBATED BY RT HINES PER DR. PAEZ ORDERS. PLACED OF FACE SHIELD.
--- NOTE | 2019-02-09 10:46 | NUR ---
Received report from Uma Francis RN and assumed care of patient.
--- NOTE | 2019-02-09 12:34 | NUR ---
CALL PLACED TO RACHEL TO LET HIM KNOW PATIENT IS OFF THE VENTILLATOR, STATED HE WILL BE HERE IN 10 MINUTES.
[2019-02-10] VITALS (13 sets, daily range): BP systolic 94–128; BP diastolic 55–91
--- NOTE | 2019-02-10 00:17 | NUR ---
Pt started to become quite anxious, was asking that her be called, and when he did show up, she calmed down almost immediately. He brought a mouth guard for her which also helped her anxiety level. She is currently resting comfortably, and she will likely need her home meds in the morning. She is taking PO food/fluids w/o difficulty, no signs of dysphagia is noted, and she denies any pain. Will continue to monitor.
[2019-02-10 03:31] LABS: BASOPHILS 0.6 % (0.0-2.0); EOSINOPHILS 0.2 % (0.0-3.0); HEMATOCRIT 40.8 % (37.0-47.0); HEMOGLOBIN 13.4 gm/dL (12.0-15.0); LYMPHOCYTES 14.7 % (24.0-44.0); MCH 31.5 pg (26.0-34.0); MCHC 32.7 g/dL (28.0-37.0); MCV 96.3 fL (80.0-100.0); MONOCYTES 4.7 % (1.0-8.0); PLATELET COUNT 359 thou/uL (150-400); POLYS 79.8 % (36.0-66.0); RBC 4.24 mil/uL (4.20-5.00); RDW 13.5 % (10.5-14.5); WBC 15.1 thou/uL (4.0-11.0)
[2019-02-10 03:38] LABS: CALCIUM 9.7 mg/dL (8.5-10.1); CREATININE 1.4 mg/dL (0.6-1.0); MAGNESIUM 1.6 mg/dL (1.8-2.4); PHOSPHORUS 3.9 mg/dL (2.5-4.9); POTASSIUM 4.2 mmol/L (3.5-5.1)
--- NOTE | 2019-02-10 14:20 | NUR ---
EXTUBATED 02/09 AND CURRENTLY ON 5 LITERS NC O2. PT/OT EVALS ORDERED AND PER PT EVAL NEEDS REHAB. NOTED DR. SENIOR'S NOTE INDICATING PT'S DESIRE TO GO HOME TODAY, THEN SPOUSE'S DESIRE FOR SPOUSE TO STAY WUNTIL MEDICALLY STABLE.
--- NOTE | 2019-02-10 19:18 | NUR ---
WORKING WITH PT/OT TODAY. COMPLAINING OF ANXIETY. DISCUSSED WITH DR KAM AND ORDER RECIEVED FOR XANAX. STARTED ON HEART HEALTHY DIET AND TOLERATED WELL. PT'S SON AND AT BEDSIDE AND UPDATED. UP TO CHAIR FOR 3 HRS TODAY.
[2019-02-11] VITALS (10 sets, daily range): BP systolic 97–131; BP diastolic 55–85
[2019-02-11 04:56] LABS: ALBUMIN 2.9 g/dL (3.4-5.0); CALCIUM 9.3 mg/dL (8.5-10.1); CREATININE 1.5 mg/dL (0.6-1.0); PHOSPHORUS 3.3 mg/dL (2.5-4.9); POTASSIUM 3.2 mmol/L (3.5-5.1); TOTAL BILIRUBIN 0.7 mg/dL (<0.1-1.0); TOTAL PROTEIN 6.7 g/dL (6.4-8.2)
[2019-02-11 05:41] LABS: HEMATOCRIT 39.6 % (37.0-47.0); MCH 31.7 pg (26.0-34.0); MCV 96.1 fL (80.0-100.0); PLATELET COUNT 348 thou/uL (150-400); RBC 4.12 mil/uL (4.20-5.00); RDW 13.4 % (10.5-14.5); WBC 14.6 thou/uL (4.0-11.0)
--- NOTE | 2019-02-11 07:50 | NUR ---
PT ANXIOUS AND COMPLANING OF UNABLE TO SLEEP THROUGHOUT THE NIGHT. VITAL SIGNS STABLE THROUGHOUT THE NIGHT. PT PROGRESSING TOWARDS GOAL. PT PROBABLY NEEDS HER MELATONIN BACK TO HER MED REGIMEN FOR SLEEP. CHART CHECK. REPORT GIVEN TO VICKEY STRICKLAND.
[2019-02-11 09:01] LABS: BE(vivo) -0.5 mmol/L (-2 to +3); HCO3 24.6 mmol/L (22.0-26.0); PCO2 42.3 mmHg (35.0-45.0); pH 7.383 (7.360-7.450); sO2 97.9 % (92.0-98.0)
[2019-02-11 09:09] LABS: ABSOLUTE NEUTROPHILS 9.5 thou/uL (1.4-8.2); PLATELET ESTIMATE NORMAL
--- NOTE | 2019-02-11 14:20 | NUR ---
TRANSFER TO ROOM 204 BEDSIDE REPORT GIVEN TO NANDO RN TO ASSUME CARE. UP TO WHEEL CHAIR GAIT BELT. LUNGS CLEAR TO DIMINISHED. GETS BREATHING TREATMENTS. SPOUSE AT BEDSIDE FOR SUPPORT. GRUBER CATH TO DD WITH GOOD OUTPUT PRESENT. ALERT AND ORIENTED X2 WITH SOME CONFUSION. NURSE CALL LIGHT WITHIN REACH AND PT CALLS WHEN NECESSARY. PT HAS ANXIETY AND SCHEDULED MEDS FOR ANXIETY GIVEN ON JUN. WILL CONTINUE TO ASSESS AND MONITOR PER NURSING. PT NOT WANTING ANY PROCEDURE DONE WITH JAYLIN PT REPORTS. CONSENT ON CHART BUT NOT SIGNED AT THIS TIME.
--- NOTE | 2019-02-11 19:39 | NUR ---
58 YO FEMALE TRANSFERRED TO 204 FROM ICU. AASSESSMENT PERFORMED AND CHARTED, VSS, ALERT AND ORIENTED TO SELF AND PLACE. R TRIPLE LUMEN EJ. AT BEDSIDE, WILL CONTINUE TO MONITOR
[2019-02-12] VITALS (9 sets, daily range): BP systolic 98–125; BP diastolic 63–84
--- NOTE | 2019-02-12 05:41 | NUR ---
assumed pt care at 1900. pt at bedside and stayed night. pt gets up to toilet but needs extra time and assistance due to weakness and mobility. pt c/o pain and not being able to sleep however refused the fentnyl and melatonin. pt did sleep thru night. pt is suppose to have renal stents placed however she has not signed the consent and was refusing to have the procedure when asked about it. will continue to monitor per poc.
--- NOTE | 2019-02-12 09:03 | NUR ---
ON 02/11/19 PATIENT WAS SEEN BY DANY WATTS NP WITH DR. DONNY MCNEIL. PATIENT IS A CANDIDATE FOR [facility]. PATIENT CAN BE CONSIDERED FOR ADMISSION IF PATIENT IS AGREEABLE TO ADMISSION AND BED IS AVAILABLE WHEN PATIENT IS MEDICALLY STABLE. THANK YOU FOR THIS REFERRAL.
[2019-02-12 10:01] LABS: CALCIUM 9.6 mg/dL (8.5-10.1); CREATININE 1.9 mg/dL (0.6-1.0); MAGNESIUM 1.7 mg/dL (1.8-2.4)
[2019-02-12 10:08] LABS: POTASSIUM 2.5 mmol/L (3.5-5.1)
--- NOTE | 2019-02-12 10:43 | NUR ---
PT GIVEN 40 MEQ K PO AND 20 MEQ K IV PER VERBAL ORDER FROM MD MOSQUEDA. RN UNABLE TO DOCUMENT THIS IS MAR, D/T NO SCANNER. PRIMARY RN, ARMANDO, AWARE OF ADMINISTRATION
--- NOTE | 2019-02-12 13:06 | NUR ---
AAO, ODD AFFECT. SR/ST PER TELE. DOWN EARLY THIS A.M. TO DIRECTOR OF INTEGRATED MARKETING, IN TOW. WILL CONTINUE TO MONITOR.
[2019-02-12 15:50] LABS: CALCIUM 9.1 mg/dL (8.5-10.1); CREATININE 1.6 mg/dL (0.6-1.0); POTASSIUM 3.5 mmol/L (3.5-5.1)
--- NOTE | 2019-02-12 22:52 | CATHLAB ---
[facility] [address] [place] [address] INVASIVE PROCEDURE REPORT Name: MARIA GUADALUPE HERNADEZ Estela Room #: 204-P [facility] IN [facility]#: [id number] Admission: 01/31/19 Attend Phys: Nav Jain Discharge: Date of : 62 Report #: [id number] THIS REPORT FOR: //name// APPROVED REPORT Study performed: 02/12/2019 12:33:35 Patient Details The patient is a 58 year-old female Event Personnel Jeison Patterson Packing Room Worker, Love Robledo RN, Diaz Nicholson, Layla Mora Scrub Procedures Performed Right and Left Heart Cath w/or w/o Coronarie [id number] [facility] Indication Chest pain Procedure Narrative A SHEATH BRITE-TIP 6F X 11CM ([id number]) sheath was inserted into the RFA^. Coronary angiography was performed using coronary diagnostic catheters. The right coronary system was accessed and visualized with a JR4 catheter. The left coronary system was accessed and visualized with a JL4 catheter. The left ventricle was accessed and visualized with a PIGTAIL catheter. Left ventriculogram was performed in 30 degree projection. Hemostasis was obtained with manual pressure following sheath removal without any complications. The patient tolerated the procedure well and there were no complications associated with the procedure. There was no hematoma. Intraoperative Conscious Sedation Sedation start time: 12.56 Case end Time: 13.00 Fluoro Time: 1.57 minutes Dose: DAP 2197.00 cGycm2 246 mGy Contrast Type and Amount: Visipaque 60 ml Hemodynamics The right atrial mean pressure is 21 mmHg. The right ventricular pressure is 50/10 mmHg. The pulmonary artery pressure is 36/19 mmHg with a mean of 25 mmHg. The mean pulmonary capillary wedge pressure [facility] [address] [place] [address] INVASIVE PROCEDURE REPORT Name: MARIA GUADALUPE HERNADEZ Room #: 204-P [facility] IN [facility]#: [id number] Admission: 01/31/19 Attend Phys: Nav Jain Discharge: Date of : 62 Report #: [id number] is 23 mmHg. The aortic pressure is 126/78 mmHg with a mean of 11 mmHg. The left ventricular pressure is 123/10 mmHg with a mean of mmHg. The left ventricular end diastolic pressure is 17 mmHg. The cardiac output using thermo method is 2.95 L/min. PCI Technique Lesion Percutaneous coronary intervention was performed on the Unspecified. Conclusion #1 successful right heart catheterization see above hemodynamics with cardiac output by thermodilution. #2 normal left ventricular size and systolic function has normalized EF 50-55% #3 left main moderate size giving rise to LAD and circumflex #4 LAD extends to the apex with mild diffuse irregularity #5 circumflex OM is moderate nondominant no occlusive disease #6 dominant right is occluded. Briskly filled via the left system the PDA and KENAN. Recommendations and plan: Continue aggressive risk factor modification. Continue diuresis. LV function has improved in comparison the echo. This right coronary occlusion appears chronic and well collateralized. No indication for intervention. <ELECTRONICALLY SIGNED> By: Jeison Patterson MD, FACC 02/12/192251 51 51 Jeison Patterson MD, FACC /INF
[2019-02-13] VITALS (7 sets, daily range): BP systolic 99–105; BP diastolic 62–72
[2019-02-13 05:29] LABS: CALCIUM 9.2 mg/dL (8.5-10.1); CREATININE 1.5 mg/dL (0.6-1.0); MAGNESIUM 1.6 mg/dL (1.8-2.4)
[2019-02-13 05:38] LABS: POTASSIUM 2.6 mmol/L (3.5-5.1)
--- NOTE | 2019-02-13 06:42 | NUR ---
ASSUMED PT CARE AT 1900. PT VSS. PT WAS AGITATED AND WANTING TO LEAVE. PT WANTS TO BE PROVIDED THE CHANCE TO PERFORM DAILY CARES HERSELF WITH MINIMAL ASSISTANCE. PT GIVEN SLEEP AID AND SLEPT THRU NIGHT. PT WOKE UP AGITATED AGAIN AND WANTING TO BE DISCHARGED. WILL CONTINUE TO MONITOR PT PER POC.
[2019-02-13 07:27] LABS: HEMATOCRIT 36.6 % (37.0-47.0); HEMOGLOBIN 11.8 gm/dL (12.0-15.0); MCH 31.1 pg (26.0-34.0); MCHC 32.3 g/dL (28.0-37.0); MCV 96.1 fL (80.0-100.0); RBC 3.81 mil/uL (4.20-5.00); RDW 13.3 % (10.5-14.5); WBC 14.4 thou/uL (4.0-11.0)
[2019-02-13] MEDS ORDERED: CLOPIDOGREL75 MG PO (09:18)
[2019-02-13] MEDS ORDERED: METOPROLOL SUCC25 M1 PO (09:18)
[2019-02-13] MEDS ORDERED: SPIRONOLACTONE25 M1 PO (09:18)
[2019-02-13] MEDS ORDERED: ROXICODONE30 M1 PO (09:30)
[2019-02-13] MEDS ORDERED: PREDNISONE 10 M10 MG PO (09:32)
[2019-02-13] MEDS ORDERED: CEFDINIR300 MG PO (09:33)
--- NOTE | 2019-02-13 09:47 | 2DMMODE ---
[address] [address] 2 D/M-MODE ECHOCARDIOGRAM Name: MARIA GUADALUPE HERNADEZ Room #: 204-P [facility] IN ..#: [id number] Admission: 01/31/19 Attend Phys: Nav Jain Discharge: Date of : 62 Report #: [id number] THIS REPORT FOR: //name// APPROVED REPORT Study performed: 02/13/2019 08:13:41 EXAM: Limited 2D and color flow Echocardiogram Patient Location: Bedside Room #: [facility] Status: routine BSA: 1.70 HR: 98 bpm BP: 99/62 mmHg Rhythm: NSR Other Information Study Quality: Adequate Indications Cardiomyopathy Limited 2D echo to check EF 2D Dimensions IVSd: 8.87 (7-11mm) LVDd: 33.23 mm PWd: 9.13 (7-11mm) LVDs: 20.54 (25-40mm) Left Ventricle The left ventricle is normal size. There is normal LV segmental wall motion. There is normal left ventricular wall thickness. The overall left ventricular systolic function appears normal. LVEF is 55%. Right Ventricle The right ventricle is normal size. Aortic Valve The aortic valve is normal in structure. Mitral Valve The mitral valve is normal in structure. Moderate mitral regurgitation. Tricuspid Valve [facility] [address] [place] [address] 2 D/M-MODE ECHOCARDIOGRAM Name: MARIA GUADALUPE HERNADEZ Estela Room #: 204-P [facility] IN M.R.#: [id number] Admission: 01/31/19 Attend Phys: Nav Jain Discharge: Date of : 62 Report #: [id number] The tricuspid valve is normal in structure. There is no tricuspid valve regurgitation noted. Pericardium There is no pericardial effusion. <Conclusion> Limited study The overall left ventricular systolic function appears normal. LVEF is 55%. There is no pericardial effusion. <ELECTRONICALLY SIGNED> By: Ricky Sharp MD, FACC 02/13/19946 6 6 Ricky Sharp MD, FACC /INF
--- NOTE | 2019-02-13 13:40 | NUR ---
Pt anxious to go home today vs [facility]. Doing better with therapy and spouse here and agreeable to provide 24hr supervision. Pt has home dme in place including o2. Pt initially refused hh referral today but after talking with her spouse she is agreeable to nursing only. Again spouse confirms family to provide 24hr supervision and medication mngt specifically. Pt is still impulsive and argumentative at times. Denies agency preference. Will see if [facility] can accept for nursing f/u and lab draws. Dc program planner to fax referral. The attending was updated as well as nursing. Pt going home today with her spouse. [facility] liason also updated.
[2019-02-13] MEDS ORDERED: MAG-OXIDE400 MG PO (15:07)
--- NOTE | 2019-02-13 17:53 | NUR ---
ODD AFFECT. AT BEDSIDE. ISOLATION. SR/ST PER TELE. DISCHARGING TODAY. SHEREEN VAZQUEZ, SETS UP HOME HEALTH. I.J. DISCONTINUED RIGHT JUGULAR, PRESSURE HELD FOR 5 MINUTES, NO BLEEDING OR HEMATOMA. FROM UNIT BY GERMÁN, ACCOMPANIED BY MYSELF.
== END 2019-02-13 15:10 | disposition home or self-care (01) | DRG 853 ==
LOC: ER 20:22 → EROBS 22:44 → ICU 22:44 → 2N 02-11 14:14
PROVIDERS: Emergency Medicine; Hospitalist; Internal Medicine; Internal Medicine Cardiovascular Disease; Internal Medicine Pulmonary Disease; Nurse Practitioner Adult Health; Nurse Practitioner Family; Pediatrics; ADMIT Hospitalist
PROC: 4A023N8 Measurement of Cardiac Sampling and Pressure, Bilateral, Percutaneous Approach (ICD-10-PCS; principal; 2019-01-31)
PROC: 5A1955Z Respiratory Ventilation, Greater than 96 Consecutive Hours (ICD-10-PCS; principal; 2019-01-31)
PROC: B211YZZ Fluoroscopy of Multiple Coronary Arteries using Other Contrast (ICD-10-PCS; principal; 2019-01-31)
PROC: B215YZZ Fluoroscopy of Left Heart using Other Contrast (ICD-10-PCS; principal; 2019-01-31)
PROC: 0BH17EZ Insertion of Endotracheal Airway into Trachea, Via Natural or Artificial Opening (ICD-10-PCS; principal; 2019-01-31)
PROC: 0DJ08ZZ Inspection of Upper Intestinal Tract, Via Natural or Artificial Opening Endoscopic (ICD-10-PCS; 2019-02-06)
PROC: 0B9G8ZX Drainage of Left Upper Lung Lobe, Via Natural or Artificial Opening Endoscopic, Diagnostic (ICD-10-PCS; 2019-02-06)
PROC: B4181ZZ Fluoroscopy of Bilateral Renal Arteries using Low Osmolar Contrast (ICD-10-PCS; 2019-02-12)
PROC: B4101ZZ Fluoroscopy of Abdominal Aorta using Low Osmolar Contrast (ICD-10-PCS; 2019-02-12)
PROC: 04793DZ Dilation of Right Renal Artery with Intraluminal Device, Percutaneous Approach (ICD-10-PCS; 2019-02-12)
DX: A41.9 Sepsis, unspecified organism (principal); J96.01 Acute respiratory failure with hypoxia; G92 Toxic encephalopathy; N17.0 Acute kidney failure with tubular necrosis; I50.43 Acute on chronic combined systolic (congestive) and diastolic (congestive) heart failure; E43 Unspecified severe protein-calorie malnutrition; K29.71 Gastritis, unspecified, with bleeding; J96.02 Acute respiratory failure with hypercapnia; J44.1 Chronic obstructive pulmonary disease with (acute) exacerbation; E87.2 Acidosis; G93.1 Anoxic brain damage, not elsewhere classified; I42.9 Cardiomyopathy, unspecified; I47.2 Ventricular tachycardia; R65.20 Severe sepsis without septic shock; F32.9 Major depressive disorder, single episode, unspecified; F41.9 Anxiety disorder, unspecified; K21.9 Gastro-esophageal reflux disease without esophagitis; F17.210 Nicotine dependence, cigarettes, uncomplicated; E03.9 Hypothyroidism, unspecified; E87.5 Hyperkalemia; I77.1 Stricture of artery; I73.9 Peripheral vascular disease, unspecified; I70.1 Atherosclerosis of renal artery; D64.9 Anemia, unspecified; E05.00 Thyrotoxicosis with diffuse goiter without thyrotoxic crisis or storm; I95.9 Hypotension, unspecified; Z79.899 Other long term (current) drug therapy; Z79.82 Long term (current) use of aspirin; Z71.6 Tobacco abuse counseling; Z99.81 Dependence on supplemental oxygen; Z68.31 Body mass index [BMI] 31.0-31.9, adult; Z22.322 Carrier or suspected carrier of Methicillin resistant Staphylococcus aureus
CPT/HCPCS: 10078; 10081

== ENCOUNTER → 2020-01-07 | Outpatient (CLI) | payer BC, OTHER ==
[~2020-01-07] MED LIST changes: +ASA81BEC PO; +BUPROPION XL300 MG PO; +CEFDINIR300 MG PO; +CLOPIDOGREL75 MG PO; +DIPENTUM 250MG250 MG PO; +IPRAT-ALBUT 0.5-3 ML; +MAG-OXIDE400 MG PO; +MELATONIN5 MG PO; +METOPROLOL SUCC25 M1 PO; +OLANZAPINE ODT5 MG PO; +OXYCONTIN PO; +PREDNISONE 10 M10 MG PO; +PROAIR HFA8.5 GM INH; +SPIRONOLACTONE25 M1 PO; +TRAMADOL 50 MG50 MG PO; +TRAZODONE HCL100 MG PO; +ZANTAC 150MG T150 M1 PO
== END ==
LOC: SJCVCIMAG 09:47
PROVIDERS: ATTEND Internal Medicine Cardiovascular Disease
DX: I34.0 Nonrheumatic mitral (valve) insufficiency (principal); I25.10 Atherosclerotic heart disease of native coronary artery without angina pectoris; I10 Essential (primary) hypertension; F17.200 Nicotine dependence, unspecified, uncomplicated

== ENCOUNTER → 2020-02-13 | Outpatient (CLI) | payer BC, OTHER | LOC: SJCVCIMAG 11:29 | PROVIDERS: ATTEND Internal Medicine Cardiovascular Disease | DX: I65.23 Occlusion and stenosis of bilateral carotid arteries (principal); T82.858A Stenosis of other vascular prosthetic devices, implants and grafts, initial encounter; I10 Essential (primary) hypertension; Y83.8 Other surgical procedures as the cause of abnormal reaction of the patient, or of later complication, without mention of misadventure at the time of the procedure; Y92.89 Other specified places as the place of occurrence of the external cause ==

== ENCOUNTER → 2020-02-17 | Outpatient (CLI) | payer OTHER, BC | LOC: SJCVC 13:58 | PROVIDERS: ATTEND Nuclear Medicine Nuclear Cardiology | DX: R94.31 Abnormal electrocardiogram [ECG] [EKG] (principal); I73.9 Peripheral vascular disease, unspecified; I25.10 Atherosclerotic heart disease of native coronary artery without angina pectoris; E78.00 Pure hypercholesterolemia, unspecified; I10 Essential (primary) hypertension; I42.9 Cardiomyopathy, unspecified; I77.1 Stricture of artery; I70.1 Atherosclerosis of renal artery; I34.0 Nonrheumatic mitral (valve) insufficiency; F17.210 Nicotine dependence, cigarettes, uncomplicated; Z79.899 Other long term (current) drug therapy ==

== ENCOUNTER → 2020-10-26 | Outpatient (CLI) | payer OTHER | LOC: SJCVCIMAG 07:45 | PROVIDERS: ATTEND Internal Medicine Cardiovascular Disease | DX: I34.0 Nonrheumatic mitral (valve) insufficiency (principal); R94.31 Abnormal electrocardiogram [ECG] [EKG]; I25.10 Atherosclerotic heart disease of native coronary artery without angina pectoris; I42.9 Cardiomyopathy, unspecified; I70.1 Atherosclerosis of renal artery; I10 Essential (primary) hypertension; E78.00 Pure hypercholesterolemia, unspecified; R06.00 Dyspnea, unspecified; J44.9 Chronic obstructive pulmonary disease, unspecified; M19.90 Unspecified osteoarthritis, unspecified site; F17.210 Nicotine dependence, cigarettes, uncomplicated; Z95.828 Presence of other vascular implants and grafts; Z79.82 Long term (current) use of aspirin; Z79.899 Other long term (current) drug therapy; Z82.49 Family history of ischemic heart disease and other diseases of the circulatory system ==

== ENCOUNTER → 2020-11-04 | Outpatient (CLI) | payer OTHER | LOC: SJCVCIMAG 11-01 13:56 | PROVIDERS: ATTEND Internal Medicine Cardiovascular Disease | DX: I49.3 Ventricular premature depolarization (principal); R00.1 Bradycardia, unspecified; I65.21 Occlusion and stenosis of right carotid artery; R06.00 Dyspnea, unspecified; Z01.810 Encounter for preprocedural cardiovascular examination; I42.9 Cardiomyopathy, unspecified; I25.10 Atherosclerotic heart disease of native coronary artery without angina pectoris; E78.5 Hyperlipidemia, unspecified; J44.9 Chronic obstructive pulmonary disease, unspecified; I73.9 Peripheral vascular disease, unspecified; Z79.82 Long term (current) use of aspirin; Z79.899 Other long term (current) drug therapy ==

== ENCOUNTER → 2021-05-17 | Outpatient (CLI) | payer OTHER | LOC: SJCVCIMAG 02-15 13:22 | PROVIDERS: ATTEND Nuclear Medicine Nuclear Cardiology | DX: T82.856A Stenosis of peripheral vascular stent, initial encounter (principal); I65.23 Occlusion and stenosis of bilateral carotid arteries; I10 Essential (primary) hypertension ==

== ENCOUNTER → 2021-05-25 | Outpatient (CLI) | payer OTHER | LOC: SJCVC 11:59 | PROVIDERS: ATTEND Nuclear Medicine Nuclear Cardiology | DX: I10 Essential (primary) hypertension (principal); I73.9 Peripheral vascular disease, unspecified; I70.1 Atherosclerosis of renal artery; I77.9 Disorder of arteries and arterioles, unspecified; I25.10 Atherosclerotic heart disease of native coronary artery without angina pectoris; Z82.49 Family history of ischemic heart disease and other diseases of the circulatory system; F17.210 Nicotine dependence, cigarettes, uncomplicated; Z79.82 Long term (current) use of aspirin; Z79.899 Other long term (current) drug therapy ==